=== PATIENT | male | born 1980 | race Caucasian/White ===

== ENCOUNTER 2016-12-03 22:40 | Observation (INO) | payer OTHER ==
[~2016-12-03] VITALS: Ht 182.9 cm; Wt 145.1 kg
--- NOTE | 2016-12-03 23:01 | ED GENERAL ADULT ---
See Addendum History of Present Illness General Chief Complaint: Psychiatric Related Complaint Stated Complaint: ETOH THOUGHTS OF HURTING SELF Source: patient, family Exam Limitations: no limitations Vital Signs & Intake/Output Vital Signs & Intake/Output Vital Signs Date Time Temp Pulse Resp B/P Pulse O2 O2 Flow FiO2 Ox Delivery Rate 12/04 1405 98.3 120 20 150/98 12/04 1404 98.3 120 20 150/98 98 Room Air 12/04 1115 98.1 126 18 158/108 12/04 1108 98.1 126 18 158/108 98 12/04 0827 96.6 128 18 126/63 12/04 0821 96.6 128 18 126/63 100 12/04 0555 96.9 108 20 180/90 12/04 0554 96.9 108 20 180/90 96 12/04 0409 103 18 157/88 12/04 0356 98.8 103 18 157/88 94 Room Air 12/04 0147 98.5 100 20 156/100 96 Room Air 12/04 0145 98.5 100 20 156/100 12/04 0015 95 Room Air 12/04 0012 98.1 105 20 160/107 12/03 2332 98.1 105 20 160/107 12/03 2309 98.1 105 20 160/107 95 Room Air ED Intake and Output 12/04 0000 12/03 1200 Intake Total 0 Output Total Balance 0 Intake, Oral 0 Patient 320 lb Weight Allergies Coded Allergies: No Known Allergies (12/03/16) Reconcile Medications Amlodipine Besylate 10 MG TABLET 10 MG PO DAILY BP (Reported) Triage Nurses Notes Reviewed? yes HPI: Patient presents requesting alcohol detox as well as increasing depression to the point that he is now getting suicidal thoughts. There is no plan. Patient states that when he was younger he smoked marijuana all the time and in the marijuana turned into cocaine in the cocaine turned into narcotics and the narcotics turned and alcohol. Patient is ever gone through alcohol detox before however he knows if he does not drink for a day gets very shaky and his heart began to pound. There is no history of withdrawal seizures. Patient denies any hallucinations. Patient was told years ago that he had high blood pressure but he only started medication last week for it. Patient states that he has finally reached the point where he knows he has a problem and notes he needs help to stop drinking. Patient also started Chantix last week. (IBAN CLEMONS,ADALID Johnson) Past History Travel History Traveled to [place] past 21 day No Medical History Any Pertinent Medical History? see below for history Cardiovascular: hypertension Surgical History Surgical History: non-contributory Psychosocial History Tobacco Use: Current Daily Use Daily Tobacco Use Amount/Type: => 5 Cigarettes daily ETOH Use: alcoholic Illicit Drug Use: PAST POLYSUBSTANCE USE Family History Hx Contributory? No (IBAN CLEMONS,ADALID Johnson) Review of Systems Review of Systems Constitutional: Reports: no symptoms. EENTM: Reports: no symptoms. Respiratory: Reports: no symptoms. Cardiovascular: Reports: no symptoms. GI: Reports: no symptoms. Genitourinary: Reports: no symptoms. Musculoskeletal: Reports: no symptoms. Skin: Reports: no symptoms. Neurological/Psychological: Reports: see HPI, depressed. Hematologic/Endocrine: Reports: no symptoms. Immunologic/Allergic: Reports: no symptoms. All Other Systems: Reviewed and Negative (IBAN CLEMONS,ADALID Johnson) Physical Exam Physical Exam General Appearance: well developed/nourished, alert, awake, intoxicated Head: atraumatic, normal appearance Eyes: Bilateral: PERRL, EOMI, other (SLUGGISH). Ears, Nose, Throat: normal pharynx, normal ENT inspection, hearing grossly normal Neck: normal inspection, supple, full range of motion Respiratory: normal breath sounds, chest non-tender, no respiratory distress, lungs clear Cardiovascular: normal peripheral pulses, tachycardia Gastrointestinal: normal bowel sounds, soft, non-tender Back: normal inspection Extremities: normal inspection, normal capillary refill, normal range of motion, no edema Neurologic/Psych: no motor/sensory deficits, awake, alert, oriented x 3, normal gait, normal mood/affect Skin: intact, normal color, warm/dry Core Measures ACS in differential dx? No CVA/TIA Diagnosis: No Severe Sepsis Present: No Septic Shock Present: No (IBAN CLEMONS,ADALID Johnson) Progress Differential Diagnoses I considered the following diagnoses in my evaluation of the patient: [Alcohol dependency, depression, suicidal ideations] Plan of Care: Orders Procedure Date/time Status Regular Diet 12/04 B Active Discharge Patient 12/04 1459 Active Pathway - chart 12/[address] in observation 12/04 26 Active Patient Data 01/12 0027 Active Code Status 12/04 26 Active Add-on Test (ER Only) 12/03 234 Active EKG 12/03 2346 Active TROPONIN LEVEL 12/03 2327 Complete Intake & Output 12/03 2300 Active Continuous Observation Monitor 12/03 2300 Active CIWA 12/03 2300 Active URINE DRUGS OF ABUSE 12/03 2300 Complete ETHANOL 12/03 2300 Complete COMPREHENSIVE METABOLIC PANEL 12/03 2300 Complete CBC WITHOUT DIFFERENTIAL 12/03 2300 Complete ED CRISIS PSYCH CONSULT 12/03 2300 Active Current Medications Sig/Endy Start time Last Medication Dose Stop Time Status Admin Lorazepam 2 MG ONCE ONE 12/04 1500 UNVr (Ativan) 12/04 1501 Lorazepam 2 MG Q2P PRN 12/04 0830 AC (Ativan) Laboratory Tests 12/03/162327: Anion Gap 21 H, Estimated GFR > 60, BUN/Creatinine Ratio 18.0, Glucose 97, Calcium 9.6, Total Bilirubin 0.8, AST 70 H, ALT 76 H, Alkaline Phosphatase 77, Troponin I < 0.01, Total Protein 8.2, Albumin 5.0, Globulin 3.2, Albumin/ Globulin Ratio 1.6, CBC w Diff NO MAN DIFF REQ, RBC 4.96, MCV 104.8 H, MCH 35.9 H, RDW 14.2, MPV 8.4, Gran % 41.0 L, Lymphocytes % 51.3 H, Monocytes % 5.6, Eosinophils % 0.9, Basophils % 1.2, Absolute Granulocytes 3.7, Absolute Lymphocytes 4.6 H, Absolute Monocytes 0.5, Absolute Eosinophils 0.1, Absolute Basophils 0.1, PUBS MCHC 34.2, Serum Alcohol 277.0 12/03/16 2315: Urine Opiates Screen < 100.00, Methadone Screen < 40, Barbiturate Screen < 60, Ur Phencyclidine Scrn < 6.00, Amphetamines Screen < 100, U Benzodiazepines Scrn < 85, Urine Cocaine Screen < 50, Urine Cannabis Screen 43.50 Initial ED EKG: NSR, no ST T wave changes Hand-Off Endorsed To: LUNA CLEMONS,PAULINE Mcdonald Endorsed Time: 0700 Pending: consult (IBAN CLEMONS,ADALID Johnson) Comments: 12/04/2016 2:01:40 PM patient signed out to me by Dr. 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 The patient's CIWA scores show minimal withdrawal but he is now hypertensive and tachycardic. There is a potential availability at [facility] for him. I have ordered Ativan and we'll reevaluate. If the patient's heart rate and blood pressure improve he will report [facility] for intake. (LUNA CLEMONS,PAULINE Mcdonald) Departure Departure Condition: Stable Clinical Impression Primary Impression: Alcohol dependency Secondary Impressions: Depressed Departure Forms: Customer Survey General Discharge Information (ADALID FERRERA MD) Departure Disposition: OTHER [facility] Additional Instructions: Report directly to [facility] for intake evaluation. Return if any concerns or sudden worsening. (PAULINE CARRASCO MD) Critical Care Note Critical Care Note Critical Care Time: non-applicable (ADALID FERRERA MD) ED Attending Observation Initial Observation Note: I have seen and personally examined JUNIOR BARON on 12/04/16 at 0028. I agree with the current emergency department documentation. The disposition (admission or discharge) is uncertain at this time, he needs a period of observation for the following reason(s): [Patient will require close monitoring of his vital signs and CIWA score. Patient may require medical admission and once he is medically cleared he require psychiatric consultation. Patient is at high risk of having a seizure.] The ED Nurse caring for this patient has been personally informed as to what the patient is being observed for. Observation Re-Evaluation: I have reevaluated JUNIOR BARON on 12/04/16 at 0242. The physical findings that support the continued need to observe this patient include [patient CIWA score continues to be 0. Patient is started to complain of little heartburn which was relieved with a GI cocktail. Patient is not tremulous. ]. His lung sounds are clear to auscultation his cardiac exam is regular rate and rhythm. (ADALID FERRERA MD) Observation Discharge: I have reevaluated JUNIOR BARON on 12/04/16 at 1500. The patient is: ([X]): Stable for discharge (): To be admitted to Nursing Floor (): To be placed in Observation on Nursing Floor ([X]): For transfer to other facility The patient was being observed for [signs of alcohol withdrawal] As a result of that observation, I have determined [the patient is experiencing acute alcohol withdrawal and will be evaluated at [facility]. Given the medications provided in the emergency department I feel he is stable for this plan]. (LUNA CLEMONS,PAULINE Mcdonald)
--- NOTE | 2016-12-03 23:05 | NUR ---
PT BROUGHT DIRECTLY TO RM 13. PT STATES HE WANTS ETOH DETOX. STATES HE DRINKS 750ML OF VODKA EVERY OTHER DAY. PT DENIES PHYSICAL COMPLAINTS, LAST DRINKL WAS 2 HOURS DENSITOMETRIST. PT STATES HE SMOKE WEED SOMETIMES. PT STATES HE HAS BEEN HAVING THOUGHT OF SI THAT HAVE BEEN GETTING WORSE. PT IS CALM AND COOPERATIVE. DENIES HX OF DT'S
--- NOTE | 2016-12-03 23:18 | NUR ---
URINE TRIO SENT TO LAB
--- NOTE | 2016-12-03 23:25 | NUR ---
AT BEDSIDE FOR EVAL
[2016-12-03 23:32] VITALS: BP 160/107
[2016-12-03 23:34] LABS: ABSOLUTE BASOPHIL COUNT 0.1 /CUMM (0.0-0.2); ABSOLUTE EOSINOPHIL COUNT 0.1 /CUMM (0.0-0.7); ABSOLUTE GRANULOCYTE CT 3.7 /CUMM (1.4-6.5); ABSOLUTE LYMPH COUNT 4.6 /CUMM (1.2-3.4); ABSOLUTE MONOCYTE COUNT 0.5 /CUMM (0.10-0.60); BASOPHIL % 1.2 % (0.0-2.0); EOSINOPHIL % 0.9 % (0-5); HEMATOCRIT 51.9 % (42-52); MEAN CORPUSCULAR HGB 35.9 PG (27.0-31.0); MEAN CORPUSCULAR HGB CONC 34.2 G/DL (33.0-37.0); MEAN CORPUSCULAR VOLUME 104.8 FL (80.0-94.0); MEAN PLATELET VOLUME 8.4 FL (7.4-10.4); PLATELET COUNT 335 /CUMM (130-400); RBC DISTRIBUTION WIDTH 14.2 % (11.5-14.5); RED BLOOD CELL CT 4.96 /CUMM (4.70-6.10)
[2016-12-04] VITALS (7 sets, daily range): BP systolic 126–180; BP diastolic 63–108
[2016-12-04] MEDS ORDERED: AMLODIPINE BESY10 M1 PO (00:16)
--- NOTE | 2016-12-04 00:17 | NUR ---
PT MEDICATED WITH 25MG LOPRESSOR PER EMAR
--- NOTE | 2016-12-04 00:27 | NUR ---
PT SCORED 0 FOR CIWA, PT CALM AND COOPERATIVE, PER PT "I WONT START WITHDRAWING UNTIL THE MORNING". PT RESTING ON STRETCHER, OFFERING NO COMPLAINTS AT THIS TIME, NO DISTRESS NOTED. SITTER AT BEDSIDE FOR SAFETY.
--- NOTE | 2016-12-04 01:44 | NUR ---
PT MEDICATED WITH GI COCKTAIL FOR ACID REFLUX PER EMAR, TOLERATED WELL.
--- NOTE | 2016-12-04 04:09 | NUR ---
PT SITTING UP WATCHING TV. SCORING 3 ON CIWA DUE TO HEADACHE. RESP UNLABORED. SITTER AT BEDSIDE.
--- NOTE | 2016-12-04 05:59 | NUR ---
PT CALM AND COOPERTIVE. PT REPORTS HEART RACING AND NAUSEA. PT BP IN 180'S AND HR 108. PT MEDICATED WITH 2 MG ATIVAN PER ORDER. WILL CONTINUE TO MONITOR.
--- NOTE | 2016-12-04 07:00 | NUR ---
PT SLEEPING AT THIS TIME NO DISTRESS NOTED SITTER REMAINS IN [place]
--- NOTE | 2016-12-04 08:34 | NUR ---
PT MEDICATED WITH ATIVAN FOR CIWA OF 10
--- NOTE | 2016-12-04 11:36 | NUR ---
PT MEDICATED WITH 1 OF ATIVAN PT ATE 100% OF HIS LUNCH TRAY
--- NOTE | 2016-12-04 13:53 | ED PSYCH CRISIS CONSULTATION ---
Crisis Consult Basic Assessment Date of Consult: 12/04/16 Responsible Person/Accompanied By: sully Ocasio other Insurance Authorization: Insurance #1: Insurance name: NAYELI STEEN Phone number: Policy number: [id number] Group number: Authorization number: ED Provider: Patient's ED Provider: ADALID FERRERA MD Primary Care Physician: Patient's PCP: COLLEEN STEVENSON MD PCP's Current Psychiatrist: none Chief Complaint: Psychiatric Related ? s I. Patient's Quote: "no, I'm not at all suicidal" Present Illness: Patient is a 36 year old male who is in a long-term stable relationship with a very supportive girlfriend with whom they have a 2 year old daughter, named Meghna. 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 Patient has had substance abuse problems since high school. He started with cannabis, and has used coccaine and oxycontin , but successfully stopped that on own. Now patient drinks 750 m.l. bottle of vodka per day. Patient is not able to work at present; but he may have a substantial financial settlement in the near future, perhaps nearly as much as $ 500,000; however much has been promised to others in anticipation of this anticipated settlement. When questioned about suicidality, patient stated that absolutely no thoughts like that; although he stated that he did have such thoughts when he was a senior in high school, as "I was the fat kid and teased a lot". Patient is fully alert and oriented, and cooperative. He verbalizes high motivation to Get treatment and to remain sober. Patient states that he does want to follow-up with counseling, as well, as his PCP had recommended. Called around for detox beds, with none available; but [facility] said that they hasdb 3 beds, and patient referred there, but will be held in E D. until heart rate is lower. Patient's Address: [address] [place] [address] Other Phone Number: Who Do You Live With? Family Family/Informants Interviewed: sully Orta other Allergies - Coded Allergies: No Known Allergies (01/11/17) Current Medications - Scheduled Medications Amlodipine Besylate 10 MG TABLET 10 MG PO DAILY BP #30 (Reported) Entered as Reported by MARIA WREN on 12/04/16 0016 Laboratory Results: Laboratory Tests 12/03/168: Anion Gap 21 H, Estimated GFR > 60, BUN/Creatinine Ratio 18.0, Glucose 97, Calcium 9.6, Total Bilirubin 0.8, AST 70 H, ALT 76 H, Alkaline Phosphatase 77, Troponin I < 0.01, Total Protein 8.2, Albumin 5.0, Globulin 3.2, Albumin/ Globulin Ratio 1.6, CBC w Diff NO MAN DIFF REQ, RBC 4.96, MCV 104.8 H, MCH 35.9 H, RDW 14.2, MPV 8.4, Gran % 41.0 L, Lymphocytes % 51.3 H, Monocytes % 5.6, Eosinophils % 0.9, Basophils % 1.2, Absolute Granulocytes 3.7, Absolute Lymphocytes 4.6 H, Absolute Monocytes 0.5, Absolute Eosinophils 0.1, Absolute Basophils 0.1, PUBS MCHC 34.2, Serum Alcohol 277.0 12/03/16 2315: Urine Opiates Screen < 100.00, Methadone Screen < 40, Barbiturate Screen < 60, Ur Phencyclidine Scrn < 6.00, Amphetamines Screen < 100, U Benzodiazepines Scrn < 85, Urine Cocaine Screen < 50, Urine Cannabis Screen 43.50 Past History Past Medical History Neurological: NONE EENT: NONE Cardiovascular: hypertension Respiratory: NONE Gastrointestinal: NONE Hepatic: NONE Renal: NONE Musculoskeletal: NONE Psychiatric: depression Endocrine: NONE Blood Disorders: NONE Cancer(s): NONE 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 of depression by PCP Substance Use/Abuse History Drug Use/Abuse Substances Used/Abused Yes Substance Used/Abused Alcohol First Use after injury alcohol became seriousthis was 1+ yrs ago Last Used yesterday How much used/taken 750 m.l. vodka daily How often daily For how long 1+ years of this amount Route of use p.o. Substance Abuse Treatment Substance Abuse Treatment Past Substance Abuse [place] No Comments: motivated Current Mental Status Mental Status Orientation: Person, Place, Situation Affect: WNL Speech: WNL Neuro-vegetative: WNL Appearance Appearance- Dress/Hygiene: adequate Behaviors Thought Process: WNL Thought Content: WNL Memory: WNL Insight: Fair SI/HI Risk Assessment Past Suicidal Ideation/Attempts Yes Current Suicidal Ideation/Att No Past Homicidal Ideation/Att: No Current Homicidal Ideation/Attempts No Degree of Intent: None Risk Factors: SA/MH hospitalized, substance abuse, male Lethality Ratin (mild) PTSD Checklist PTSD Done? pt unable to participate ED Management Sitter: Yes Restraints: No DSM5/PS Stressors/Medical Prob Diagnosis' (DSM 5, Stressors, Medical): Alcohol Use disorder, severe F10.20 Current GAF: 38 Comments: patient motivated for detox and being clean Departure Disposition Psych Medical Clearance Date: 12/04/16 Medically Cleared at: 1400 Time Started: 1401 Time Ended: 1435 Psychiatrist Consulted: German Scott MD Time Disposition Established: 1435 Plan for Disposition - Modality: Inpatient Detoxification Facility: [facility] Follow-up Appt Date: 12/04/16 Follow-Up Appt Time: 1600 Rationale for Disposition: Pt has Husky, and needs detox facility Referrals GRAHAM CLEMONS,COLLEEN (PCP/Family)
--- NOTE | 2016-12-04 14:06 | NUR ---
PT MEDICATED WITH 2 MG ATIVAN PO
== END 2016-12-04 15:30 ==
LOC: ERH 22:40 → ERHI 12-04 00:27
PROVIDERS: ADMIT Emergency Medicine
DX: F10.20 Alcohol dependence, uncomplicated (principal); F32.9 Major depressive disorder, single episode, unspecified; I10 Essential (primary) hypertension
CPT/HCPCS: 6090; 80307; 93005; 93010; G0378; G0463; G0480

== ENCOUNTER 2017-02-11 22:05 | Emergency (ER) | payer OTHER ==
[~2017-02-11 22:05] MED LIST: AMLODIPINE BESY10 M1 PO
--- NOTE | 2017-02-11 22:32 | ED HAND/WRIST INJURY COMPLAINT ---
History of Present Illness General Chief Complaint: Laceration Procedure Stated Complaint: LEFT HAND LAC ?ETOH Source: patient Exam Limitations: no limitations Vital Signs & Intake/Output Vital Signs & Intake/Output Vital Signs Date Time Temp Pulse Resp B/P Pulse O2 O2 Flow FiO2 Ox Delivery Rate 02/11 2318 97.5 78 18 153/82 97 Room Air 02/115 97.0 88 20 164/90 Allergies Coded Allergies: No Known Allergies (12/03/16) Reconcile Medications Amlodipine Besylate 10 MG TABLET 10 MG PO DAILY BP (Reported) Amoxicillin/Potassium Clav (Augmentin 875-125 Tablet) 875 MG-125 MG TABLET 1 TAB PO BID open tuft fracture Triage Note: PER PT "GOT DRUNK AND ?PUNCHED A DOOR. PT UNSURE HOW INCIDENT OCCURRED. GIRLFRIEND SUPPLYING ANSWERS, UNSURE OF LAST TETANUS Triage Nurses Notes Reviewed? yes Occurred: just prior to arrival Duration: minute(s):, constant Timing: single episode today Injury Environment: home Severity: moderate, severe Pain/Injury Location: Left: 3rd finger. Method of Injury: direct blow No Modifying Factors: none HPI: 36-year-old male comes into emergency room for further evaluation of laceration and pain to his left third finger. Patient reports that he threw it into a door. Patient admits to drinking tonight. Patient drinks alcohol on a daily basis. Patient is now here for detox. Patient is accompanied by significant other who drove him here. He denies any injury or pain anywhere else. Last tetanus shot unknown. Patient is clinically sober and alert and oriented and able to provide adequate history. (SHANNON ALY) Past History Travel History Traveled to [place] past 21 day No Medical History Any Pertinent Medical History? 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 No (SHANNON ALY) Review of Systems Review of Systems Constitutional: Reports: no symptoms. EENTM: Reports: no symptoms. Respiratory: Reports: no symptoms. Cardiovascular: Reports: no symptoms. GI: Reports: no symptoms. Genitourinary: Reports: no symptoms. Musculoskeletal: Reports: see HPI. Skin: Reports: no symptoms. Neurological/Psychological: Reports: no symptoms. Hematologic/Endocrine: Reports: no symptoms. Immunologic/Allergic: Reports: no symptoms. All Other Systems: Reviewed and Negative (SHANNON ALY) Physical Exam Physical Exam General Appearance: well developed/nourished Head: atraumatic Eyes: Bilateral: normal appearance. Ears, Nose, Throat: normal ENT inspection, hearing grossly normal Neck: normal inspection Cardiovascular/Respiratory: no respiratory distress Back: normal inspection Hand Left: 3rd finger Hand Right: normal inspection Neurologic/Tendon: normal sensation, normal motor functions, responds to pain, patient cannot extend distal phalanx Skin: intact, normal color, warm/dry Lymphatic: no anterior cervical amisha (SHANNON ALY) Progress Differential Diagnosis: dislocation, fracture, gout, paronychia, septic arthritis, sprain Plan of Care: Current Medications Sig/Endy Start time Last Medication Dose Stop Time Status Admin Amoxicillin/ 1,000 MG ONCE ONE 02/11 2345 UNVr Clavulanate Potassium 02/11 2346 (Augmentin) Tetanus/Diphtheria 0.5 ML ONCE ONE 02/11 2345 UNVr Toxoids Adsorbed 02/11 2346 (Decavac) Diagnostic Imaging: Viewed by Me: Radiology Read. Discussed w/RAD: Radiology Read. Radiology Impression: SERVICE DATE: 02/11/17 EXAM TYPE: RAD - XRY-FINGERS , LEFT EXAMINATION: XR FINGER, LEFT CLINICAL INFORMATION: Pain. Symptoms middle finger. Laceration COMPARISON: None TECHNIQUE: Three views of the left third finger. FINDINGS: Partially opaque dressing obscures some of the anatomy. There is a displaced fracture fragment associated with the ulnar margin of the third distal phalanx. This measures approximately 4 mm. There may be a rotational component. There is soft tissue swelling. IMPRESSION: There is a displaced intra -articular fracture involving the ulnar base of the third distal phalanx DICTATED BY: MIKAEL FONG MD DATE/TIME DICTATED:02/11/172254 SHIFT MECHANIC:TAJ DATE/TIME TRANSCRIBED:02/11/172254 (SHANNON ALY) Departure Departure Disposition: HOME OR SELF CARE Condition: Stable Clinical Impression Primary Impression: Open fracture of tuft of distal phalanx of finger Secondary Impressions: Mallet finger Referrals: GRAHAM CLEMONS,COLLEEN (PCP/Family) LAILA CLEMONS,RUBÉN Additional Instructions: Take Augmentin as prescribed. Follow-up with plastic surgeon provided. Return if any other concerns worsening symptoms. Watch for signs of infection such as redness swelling discharge fever chills. Please go over all results of today's visit with your primary care doctor. Contact your primary care doctor to let them know you were here in the emergency room. There may be nonspecific findings which may not be related to your visit today here in the emergency room but may require further evaluation and chronic monitoring by your primary care doctor. If you had a laceration today the chance of foreign body always remains. You should follow-up with your primary care doctor for recheck in 3-5 days for a wound check. If you had an x-ray done there is a chance that a fracture could have been missed on initial read and you should follow-up with your primary care doctor for repeat x-rays if symptoms persist. If your blood pressure was elevated here in the emergency room please have rechecked by her primary care doctor within the next 48 hours by your primary care doctor. If you were prescribed a narcotic here in the emergency room or any type of controlled substances you're not allowed to drive while taking this medication or operate any type of heavy machinery. Narcotics can make you feel lightheaded dizziness nausea and can cause constipation. You may need to fruit picker a stool softener. Thank you for choosing [facility] emergency room. Please return to the emergency room immediately if you have any other concerns worsening of symptoms. Departure Forms: Customer Survey General Discharge Information Prescriptions: Current Visit Scripts Amoxicillin/Potassium Clav (Augmentin 875-125 Tablet) 1 TAB PO BID #20 TAB (SHANNON ALY) PA/TWISTER HAND Co-Sign Statement Statement: ED Attending supervision documentation- [] I saw and evaluated the patient. I have also reviewed all the pertinent lab results and diagnostic results. I agree with the findings and the plan of care as documented in the PA's/TWISTER HAND's documentation. [X] I have reviewed the ED Record and agree with the PA's/TWISTER HAND's documentation. [] Additions or exceptions (if any) to the PAs/TWISTER HAND's note and plan are summarized below: [] (IBAN CLEMONS,ADALID Johnson) Procedures Laceration/Wound Repair Progress: Beta dime prep her left third finger, digital block, 3 mL 1% lidocaine, irrigated with copious amounts of saline, 5-0 nylon, 5 sutures, patient tolerated procedure well, sterile technique, placed in a finger splint with slight hyper extension Performed by PA student with my supervision (WILLIAM ENGLISH,SHANNON)
--- NOTE | 2017-02-11 23:00 | RADIOLOGY REPORT ---
EXAMINATION: XR FINGER, LEFT CLINICAL INFORMATION: Pain. Symptoms middle finger. Laceration COMPARISON: None TECHNIQUE: Three views of the left third finger. FINDINGS: Partially opaque dressing obscures some of the anatomy. There is a displaced fracture fragment associated with the ulnar margin of the third distal phalanx. This measures approximately 4 mm. There may be a rotational component. There is soft tissue swelling. IMPRESSION: There is a displaced intra-articular fracture involving the ulnar base of the third distal phalanx
[2017-02-11 23:18] VITALS: BP 153/82
[2017-02-11] MEDS ORDERED: AUGMENTIN 875-1 EACH PO (23:47)
== END 2017-02-12 00:10 ==
LOC: ERH 22:05
DX: S61.213A Laceration without foreign body of left middle finger without damage to nail, initial encounter (principal); W23.0XXA Caught, crushed, jammed, or pinched between moving objects, initial encounter; Y93.9 Activity, unspecified; Y92.9 Unspecified place or not applicable
CPT/HCPCS: 73140-LT; 90471; 90714; J3490

== ENCOUNTER 2017-03-08 22:06 | Inpatient (IN) | payer OTHER ==
[~2017-03-08] VITALS: Ht 182.9 cm; Wt 146.7 kg
[~2017-03-08 22:06] MED LIST changes: +AUGMENTIN 875-1 EACH PO
--- NOTE | 2017-03-08 22:37 | ED PSYCHIATRIC COMPLAINT ---
History of Present Illness General Chief Complaint: Psychiatric Related Complaint Stated Complaint: +SI, +ETOH Source: patient Exam Limitations: no limitations Vital Signs & Intake/Output Vital Signs & Intake/Output Vital Signs Date Time Temp Pulse Resp B/P Pulse O2 O2 Flow FiO2 Ox Delivery Rate 03/09 1857 97.2 76 12 150/100 98 Room Air 03/09 1647 82 174/110 03/09 1647 82 174/110 03/09 1621 97.7 82 16 174/110 99 Room Air 03/09 1030 97.1 78 18 150/89 97 Room Air 03/09 0758 97.0 82 16 136/79 03/09 0731 97.1 77 16 126/83 94 Room Air 03/09 0624 96.8 86 18 143/87 96 03/09 0115 97.0 86 18 138/74 97 03/08 2236 97.8 93 20 141/91 98 Room Air ED Intake and Output 03/09 0000 03/08 1200 Intake Total Output Total Balance Patient 300 lb Weight Allergies Coded Allergies: No Known Allergies (12/03/16) Triage Nurses Notes Reviewed? yes Onset: Abrupt Duration: week(s): Timing: recent history Severity: moderate, severe HPI: 36-year-old male comes into emergency room for further evaluation of depression and alcohol and suicidal thoughts. Patient reports that he's been feeling depressed for quite some time. Patient has been drinking heavy amounts of alcohol since November of this year. Patient reports she's had fleeting thoughts of wanting to kill himself but never has had a plan and reports that he does not believe in suicide. He admits to drinking heavy amounts of alcohol but denies any other drug use. Patient has been having relationship difficulties with his girlfriend. Patient has a daughter. (SHANNON ALY) Reconcile Medications Amlodipine Besylate 10 MG TABLET 10 MG PO DAILY BP (Reported) Folic Acid 1 MG TABLET 1 TAB PO DAILY SUPPLEMENT (Reported) Losartan Potassium 50 MG TABLET 1 TAB PO DAILY HEART (Reported) Multivitamin (Multi-Day Vitamins) 1 EACH TABLET 1 TAB PO DAILY SUPPLEMENT ( Reported) Thiamine HCl (B-1) 100 MG TABLET 1 TAB PO DAILY SUPPLEMENT (Reported) (KASIE CLEMONS,DUNIA) Past History Travel History Traveled to [place] past 21 day No Medical History Any Pertinent Medical History? 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 No (SHANNON ALY) Review of Systems Review of Systems Constitutional: Reports: no symptoms. EENTM: Reports: no symptoms. Respiratory: Reports: no symptoms. Cardiovascular: Reports: no symptoms. GI: Reports: no symptoms. Genitourinary: Reports: no symptoms. Musculoskeletal: Reports: no symptoms. Skin: Reports: no symptoms. Neurological/Psychological: Reports: see HPI. Hematologic/Endocrine: Reports: no symptoms. Immunologic/Allergic: Reports: no symptoms. All Other Systems: Reviewed and Negative (SHANNON ALY) Physical Exam Physical Exam General Appearance: well developed/nourished, mild distress Head: atraumatic Eyes: Bilateral: normal appearance. Ears, Nose, Throat: normal ENT inspection, hearing grossly normal Neck: normal inspection Respiratory: normal breath sounds, no respiratory distress Cardiovascular: regular rate/rhythm Extremities: normal range of motion Neurological/Psychiatric: awake, agitated, alert, normal mood/affect, anxious Appearance/Memory/Insight: appropriate appearance Behavoir/Eye Contact/Speech: cooperative Thoughts/Hallucinations: no apparent hallucination Skin: intact, normal color, warm/dry SAD PERSONS SAD PERSONS Response Value Male Sex? yes 1 Depression/Hopelessness? yes 2 Excessive Ethanol/Drug Use? yes 1 Single//? yes 1 Social Support? has support 0 Total 5 SAD PERSONS Done? yes (SHANNON ALY) Progress Differential Diagnosis: dementia, drug intoxication, drug overdose, drug withdrawal, electrolyte abnormality, encephalitis, hypoglycemia, hypothyroidism, IC hem/mass/tumor, meningitis, depression, anxiety, bipolar Plan of Care: Orders Procedure Date/time Status Regular Diet 03/09 B Active Admit to inpatient psych 03/09 1901 Active Continuous Observation Monitor 03/08 2224 Active URINE DRUG SCREEN FOR ER ONLY 03/08 2224 Complete ETHANOL 03/08 2224 Complete COMPREHENSIVE METABOLIC PANEL 03/08 2224 Complete CBC WITHOUT DIFFERENTIAL 03/08 2224 Complete ED CRISIS PSYCH CONSULT 04/16 2224 Active Laboratory Tests 03/09/17 0734: Urine Opiates Screen < 100.00, Methadone Screen < 40, Barbiturate Screen < 60, Ur Phencyclidine Scrn < 6.00, Amphetamines Screen < 100, U Benzodiazepines Scrn > 800 H, Urine Cocaine Screen < 50, Urine Cannabis Screen 67.00 H 03/09/17 0021: Anion Gap 13, Estimated GFR > 60, BUN/Creatinine Ratio 18.0, Glucose 97, Calcium 9.1, Total Bilirubin 0.3, AST 50, ALT 60, Alkaline Phosphatase 45, Total Protein 6.2 L, Albumin 3.6, Globulin 2.6, Albumin/Globulin Ratio 1.4, CBC w Diff NO MAN DIFF REQ, RBC 3.89 L, MCV 102.6 H, MCH 34.4 H, RDW 12.8, MPV 8.8, Gran % 50.8 , Lymphocytes % 39.1, Monocytes % 7.5, Eosinophils % 1.9, Basophils % 0.7, Absolute Granulocytes 3.6, Absolute Lymphocytes 2.8, Absolute Monocytes 0.5, Absolute Eosinophils 0.1, Absolute Basophils 0, PUBS MCHC 33.6, Serum Alcohol 121.0 03/09/2017 7:17 AM PATIENT SIGNED OUT TO ME BY DR SELBY. PENDING CRISIS EVALUATION. (DUNIA EFRRO MD) Hand-Off Endorsed To: JAKE SELBY MD Endorsed Time: 002 Pending: consult (crisis) (SHANNON ALY) Hand-Off Endorsed To: DUNIA FERRO MD Endorsed Time: 07 Pending: consult (JAKE SELBY MD) Departure Departure Disposition: STILL A PATIENT Condition: Stable Referrals: COLLEEN STEVENSON MD (PCP/Family) Departure Forms: Customer Survey General Discharge Information (SHANNON ALY) Departure Time of Disposition: 1900 Clinical Impression Primary Impression: Depressed Secondary Impressions: Bipolar disorder, unspecified, Suicidal ideation Psych Admission Note Psychiatric Admission: I have seen and evaluated JUNIOR BARON. I have also reviewed all the pertinent lab results and diagnostic results. JUNIOR BARON will be admitted to our inpatient Psychiatric unit for treatment and care. (DUNIA FERRO MD)
--- NOTE | 2017-03-08 22:43 | NUR ---
PT BROUGHT INTO ED BY POLICE AND SISTER. PT'S SISTER DROVE PT TO ED BY PRIVATE VEHICLE BUT PT WOULD NOT GET OOUT OF VEHICLE IN PARKING LOT. PD ARRIVED AND PLACED PT ON PEER. PT'S SISTER, DODIE, CAN BE REACHED VIA TELEPHONE . PT COMPLAINING OF BEING "HORRIBLY DEPRESSED" WITH SI. PT HAS HISTORY OF DEPRESSION SINCE TEENAGER AND HAD AN INCREASE IN DEPRESSION RECENTLY. PT COULD NOT SPECIFY WHEN INCREASE IN SYMPTOMS STARTED. PT HAD PLAN OF SHOOTING HIMSELF BUT DOES NOT HAVE ACCESS TO FIREARMS. PT INTOXICATED WITH SLURRED SPEECH AND ADMITTED TO DRINKING VODKA. DENIED ILLICIT DRUG USE. AMADOR THOMAS AT BEDSIDE FOR EVAL.
--- NOTE | 2017-03-08 22:48 | NUR ---
PT CHANGED INTO PAPER SCRUBS. SECURITY WANDED PT. SITTERS PRESENT. 1 BELONGINGS BAG TO CLOSET. NO VALUABLES BAG
--- NOTE | 2017-03-08 23:38 | NUR ---
PT REPORTS FEELING ANXIOUS. PT WANTS TO SMOKE. NICODERM PATCH APPLIED
--- NOTE | 2017-03-09 00:20 | NUR ---
BLOOD DRAWN AND SENT TO LAB. LAV,SST,BLUE
[2017-03-09 00:48] LABS: ABSOLUTE BASOPHIL COUNT 0 /CUMM (0.0-0.2); ABSOLUTE EOSINOPHIL COUNT 0.1 /CUMM (0.0-0.7); ABSOLUTE GRANULOCYTE CT 3.6 /CUMM (1.4-6.5); ABSOLUTE LYMPH COUNT 2.8 /CUMM (1.2-3.4); ABSOLUTE MONOCYTE COUNT 0.5 /CUMM (0.10-0.60); BASOPHIL % 0.7 % (0.0-2.0); EOSINOPHIL % 1.9 % (0-5); GRANULOCYTE % 50.8 % (42.2-75.2); HEMATOCRIT 39.9 % (42-52); MEAN CORPUSCULAR HGB 34.4 PG (27.0-31.0); MEAN CORPUSCULAR HGB CONC 33.6 G/DL (33.0-37.0); MEAN CORPUSCULAR VOLUME 102.6 FL (80.0-94.0); MEAN PLATELET VOLUME 8.8 FL (7.4-10.4); PLATELET COUNT 291 /CUMM (130-400); RBC DISTRIBUTION WIDTH 12.8 % (11.5-14.5); RED BLOOD CELL CT 3.89 /CUMM (4.70-6.10); WHITE BLOOD CELL COUNT 7.1 /CUMM (4.8-10.8)
--- NOTE | 2017-03-09 01:01 | NUR ---
PATIENT SHOWN POLICE PAPER REGARDING RATIONALE FOR PATIENT STAY IN ER D/T +SI COMMENTS, SHOWN PAPER BY HILARY LEWIS. PATIENT NOTED TO BE RESTING COMFORTABLY S/P BEING SHOWN PD PAPER. SLEEPING INTERMITTENTLY. SITTER REMAINS W/ PATIENT.
--- NOTE | 2017-03-09 02:51 | NUR ---
PATIENT CONTINUES TO SLEEP AT THIS TIME W/ REGULAR RESPIRATIONS NOTED. SITTER REMAINS W/ PATIENT. PATIENT SAFETY MONITOR SHEET BEING CONTINUED BY SITTER. PATIENT NOTED TO BE TURNING AND REPOSITIONING SELF W/O DIFFICULTY.
--- NOTE | 2017-03-09 04:58 | NUR ---
PATIENT CONTINUES TO SLEEP AT THIS TIME W/ REGULAR RESPIRATIONS NOTED. SITTER REMAINS AT BEDSIDE. PATIENT NOTED TO BE TURNING/ REPOSITIONING SELF W/O DIFFICULTY OR ASSIST. PATIENT SAFETY MONITOR SHEET CONTINUED BY SIDDHARTH.
--- NOTE | 2017-03-09 06:30 | NUR ---
AWOKE PATIENT FROM SLEEP TO OBTAIN VS. PATIENT DENIES ANY COMPLAINTS. COOPERATIVE W/ STAFF AT THIS TIME. SITTER REMAINS W/ PATIENT. POC: INITIAL CRISIS EVAL THIS AM.
--- NOTE | 2017-03-09 07:28 | NUR ---
ASSUMED CARE, PT AWAKE ALERT CALM AND COPRATIVE AT THIS TIME, DENIES PAIN, PT REQUEST NICOTINE PATCH, MD AWARE AND 21 MG PATCH PLACED ON R UPPER ARM. PT NOTED WITH R EYE BRUISING, WHEN THIS NURSE ASKED HIM WHAT HAPPENED , "STATES THAT HE IS NOT SURE BUT DENIES PAIN". PT AWARE THAT HE EILEEN BE EVALUATED BY CRISIS THIS AM AND THAT HE NEEDS TO PROVIDE A URINE SAMPLE
--- NOTE | 2017-03-09 07:41 | NUR ---
URINE TRIO SENT AT 0740.
[2017-03-09 07:58] VITALS: BP 136/79
--- NOTE | 2017-03-09 10:11 | NUR ---
PT REMAINS CALM AND COPERATIVE AT THIS TIME. WAITING ON CRISIS EVALUATION. PTS SISTER CALLED AND STATED THAT AFTER HE IS EVALUATED THAT SHE WOULD LIKE TO BE CALLED. STATES THAT SHE HAS ADDITIONAL INFORMATION THAT MAY HELP WITH PTS PLAN OF CARE
[2017-03-09] MEDS ORDERED: LOSARTAN POTASS50 M1 PO (10:33)
[2017-03-09] MEDS ORDERED: FOLIC ACID1 M1 PO (10:33)
[2017-03-09] MEDS ORDERED: B-1100 MG PO (10:34)
[2017-03-09] MEDS ORDERED: MULTI-DAY VITA1 EACH PO (10:34)
--- NOTE | 2017-03-09 12:00 | NUR ---
PT REMAINS CALM AND COPERATIVE AT THIS TIME. SITTER REMAINS
--- NOTE | 2017-03-09 15:04 | NUR ---
PT INFORMED TO FOLLOW UP WITH PRIMARY AND RE-CHECK BLOOD PRESSURE
--- NOTE | 2017-03-09 16:25 | NUR ---
BLOOD PRESSURE ELEVATED. DR FERRO NOTIFIED AND SCHEDULED BLOOD PRESSURE MEDS ORDERED
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
[2017-03-09 19:14] VITALS: BP 150/100
--- NOTE | 2017-03-09 19:19 | NUR ---
SITTING UP ON BED WITH FAMILY AT BEDSIDE. AWAKE/ALERT WITH EASY WOB. CALM/COOPERATIVE. INFORMED WAITING REGARDING ADMISSION PROCESS PROIDED. MEDICATED WITH 10MG NORVASC ORDERED FOR MANUAL BP 150/100.
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
--- NOTE | 2017-03-09 20:15 | NUR ---
REPEAT MANUAL BP 168/104. MD AWARE. AWAITING ORDERS.
--- NOTE | 2017-03-09 20:56 | NUR ---
repeat manul bp 146/88
--- NOTE | 2017-03-09 21:00 | NUR ---
REPORT TO CPS RN. PT CAN GO DOWN AFTER 2114.
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
[2017-03-10] VITALS (9 sets, daily range): BP systolic 142–160; BP diastolic 90–102
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
--- NOTE | 2017-03-10 11:44 | NUR ---
PT VISIBLE IN THE MILIEU TODAY. HE CAME TO PLANNING MEETING AND MADE THE GOAL TO FIND COPING SKILLS. PT HAS BEEN OPEN TO ATTENDING GROUPS, AND APPEARS TO HAVE GOOD INSIGHT. PT SEEMS TO BE ADJUSTING WELL TO THE MILIEU, AND HAS BEEN COOPERATIVE WITH STAFF DIRECTION. HE DENIES THOUGHTS OF HURTING HIMSELF WHEN ASKED.
--- NOTE | 2017-03-10 13:04 | History & Physical ---
General Information and HPI MD Statement: I have seen and personally examined JUNIOR BARON and documented this H&P. The patient is a 36 year old M who presented with a patient stated chief complaint of worsening depression and suicidal ideation. Source of Information: patient Exam Limitations: no limitations History of Present Illness: 36-year-old male with past medical history significant for hypertension, depression who is admitted to Inpatient Psychiatry with worsening depression as well as suicidal ideation. Patient claims that he has significant history of depression as well as anger management. Whenever he gets angry he just goes out and starts punching the wall. He is also drinking large amounts of alcohol. He also uses some recreational drugs. He smokes a pack of cigarettes a day. He is just frustrated with his life. He has a history of herniated disc about 2 years ago due to an accident and since then he lost his job. He has developed aches and pains all over his body. Now his bilateral hips, bilateral knees as well as his right shoulder are hurting. Patient is also obese. He has a 2-year-old child and he has to run around which makes him even further depressed. He does not have a job currently. He just wanted to end his life when he came in but currently upon my interview with him he was denying any suicidal ideation. He just mentions that he's feeling awfully depressed. He denies any urinary problems. He denies any fevers, cough or shortness of breath. Allergies/Medications Allergies: Coded Allergies: No Known Allergies (12/03/16) Home Med list Amlodipine Besylate 10 MG TABLET 10 MG PO DAILY BP (Reported) Folic Acid 1 MG TABLET 1 TAB PO DAILY SUPPLEMENT (Reported) Losartan Potassium 50 MG TABLET 1 TAB PO DAILY HEART (Reported) Multivitamin (Multi-Day Vitamins) 1 EACH TABLET 1 TAB PO DAILY SUPPLEMENT ( Reported) Thiamine HCl (B-1) 100 MG TABLET 1 TAB PO DAILY SUPPLEMENT (Reported) Past History Travel History Traveled to [place] past 21 day No Medical History Neurological: NONE EENT: NONE Cardiovascular: hypertension Respiratory: NONE Gastrointestinal: NONE Hepatic: NONE Renal: NONE Musculoskeletal: NONE Psychiatric: alcohol dependence, depression Endocrine: NONE Blood Disorders: NONE Cancer(s): NONE LEAF STICKER/Reproductive: NONE History of MRSA: No History of VRE: No History of CDIFF: No Isolation History: Standard Influenza Vaccine: 10/03/11 Tetanus Vaccine: 02/12/17 Surgical History Surgical History: non-contributory Past Family/Social History Family History Relations & Conditions if any MOTHER Relation not specified for: Coronary artery disease in mother Employment History Employment Unemployed Profession/Employer Last employed 02/2014 Review of Systems Review of Systems Constitutional: Reports: see HPI. EENTM: Reports: see HPI. Cardiovascular: Reports: see HPI. Respiratory: Reports: see HPI. GI: Reports: see HPI. Genitourinary: Reports: see HPI. Musculoskeletal: Reports: see HPI. Neurological/Psychological: Reports: see HPI. Exam & Diagnostic Data Last 24 Hrs of Vital Signs/I&O Vital Signs Date Time Temp Pulse Resp B/P Pulse O2 O2 Flow FiO2 Ox Delivery Rate 03/10 1233 77 144/90 03/10 1221 77 144/90 03/10 0935 98.1 72 12 142/98 03/10 0935 98.1 72 12 142/98 03/10 0808 72 142/98 03/10 0748 98.1 72 142/98 03/10 0019 98.6 74 160/102 03/10 0019 98.6 74 160/102 03/09 2056 146/88 03/09 202 76 168/104 03/09 2019 76 168/104 03/09 1919 76 150/100 03/09 1914 98.5 76 12 150/100 03/09 1857 97.2 76 12 150/100 98 Room Air 03/09 1647 82 174/110 03/09 1647 82 174/110 03/09 1621 97.7 82 16 174/110 99 Room Air Intake & Output 03/10 1600 03/10 0800 03/10 0000 Intake Total Output Total Balance Patient 323 lb 300 lb Weight Physical Exam General Appearance Alert, Oriented X3, Cooperative, No Acute Distress HEENT PERRLA Neck Supple Cardiovascular Regular Rate, Normal S1, Normal S2, No Murmurs Lungs Clear to Auscultation Abdomen Normal Bowel Sounds, Soft, No Tenderness, obese Neurological Cranial Nerves II through XII: intact Extremities No Edema Last 24 Hrs of Labs/[place]: Laboratory Tests 03/09 03/09 0734 0021 Chemistry Sodium (137 - 145 mmol/L) 146 H Potassium (3.5 - 5.1 mmol/L) 3.8 Chloride (98 - 107 mmol/L) 107 Carbon Dioxide (22 - 30 mmol/L) 26 Anion Gap (5 - 16) 13 BUN (9 - 20 mg/dL) 18 Creatinine (0.7 - 1.2 mg/dL) 1.0 Estimated GFR (>60 ml/min) > 60 BUN/Creatinine Ratio (7 - 25 %) 18.0 Glucose (65 - 99 mg/dL) 97 Calcium (8.4 - 10.2 mg/dL) 9.1 Total Bilirubin (0.2 - 1.3 mg/dL) 0.3 AST (17 - 59 U/L) 50 ALT (21 - 72 U/L) 60 Alkaline Phosphatase (< 127 U/L) 45 Total Protein (6.3 - 8.2 g/dL) 6.2 L Albumin (3.5 - 5.0 g/dL) 3.6 Globulin (1.9 - 4.2 gm/dL) 2.6 Albumin/Globulin Ratio (1.1 - 2.2 %) 1.4 Vitamin B12 (239 - 931 pg/mL) Pending Folate (2.76 - 20.0 ng/mL) Pending TSH (0.270 - 4.200 uIU/mL) Pending Free T4 (0.79 - 2.35 ng/dL) Pending Thyroxine (T4) (4.5 - 10.9 ug/dL) Pending Hematology CBC w Diff NO MAN DIFF REQ WBC (4.8 - 10.8 /CUMM) 7.1 RBC (4.70 - 6.10 /CUMM) 3.89 L Hgb (14.0 - 18.0 G/DL) 13.4 L Hct (42 - 52 %) 39.9 L MCV (80.0 - 94.0 FL) 102.6 H MCH (27.0 - 31.0 PG) 34.4 H RDW (11.5 - 14.5 %) 12.8 Plt Count (130 - 400 /CUMM) 291 MPV (7.4 - 10.4 FL) 8.8 Gran % (42.2 - 75.2 %) 50.8 Lymphocytes % (20.5 - 51.1 %) 39.1 Monocytes % (1.7 - 9.3 %) 7.5 Eosinophils % (0 - 5 %) 1.9 Basophils % (0.0 - 2.0 %) 0.7 Absolute Granulocytes (1.4 - 6.5 /CUMM) 3.6 Absolute Lymphocytes (1.2 - 3.4 /CUMM) 2.8 Absolute Monocytes (0.10 - 0.60 /CUMM) 0.5 Absolute Eosinophils (0.0 - 0.7 /CUMM) 0.1 Absolute Basophils (0.0 - 0.2 /CUMM) 0 PUBS MCHC (33.0 - 37.0 G/DL) 33.6 Toxicology Urine Opiates Screen (>2000 NG/ML) < 100.00 Methadone Screen (>300 NG/ML) < 40 Barbiturate Screen (>200 NG/ML) < 60 Ur Phencyclidine Scrn (>25 NG/ML) < 6.00 Amphetamines Screen (>1000 NG/ML) < 100 U Benzodiazepines Scrn (>200 NG/ML) > 800 H Urine Cocaine Screen (>300 NG/ML) < 50 Urine Cannabis Screen (>50 NG/ML) 67.00 H Serum Alcohol (<10 MG/DL) 121.0 Assessment/Plan Assessment: 36-year-old male with history significant for hypertension, chronic pains, depression who is admitted to Inpatient Psychiatry with worsening depression, alcohol intoxication as well as suicidal ideation. Patient has been started on amlodipine and losartan which he takes for his hypertension. He is also started on Ativan, multivitamin and folate for his history of alcohol intoxication and use. For pain management he is getting Tylenol and Neurontin when necessary. I would avoid narcotics. Psych management up to psychiatry. He has a primary care doctor and should follow-up with his primary care doctor for his chronic medical issues as well as weight management. As Ranked By This Provider Problem List: 1. Alcohol dependency 2. Depressed 3. Suicidal ideation 4. HTN (hypertension) Miscellaneous Miscellaneous Documentation Attending Case Discussed With: Nellie Connell M.D. Primary Care Physician: COLLEEN STEVENSON MD Patient sees these Specialists none Level of Patient Care: [facility]
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
--- NOTE | 2017-03-10 16:32 | SOCIAL WORKER TX PLAN PSYCH ---
Treatment Plan - Please Document: - Evidence that there is ongoing collaboration between - the patient and the interdisciplinary team, - including the patient's active participation and - responsibility for engaging in the treatment regimen, - and that the treatment plan is individualized and - relevant to the patient's conditions. - Treatment plan should reflect documentation indicating - that all active therapeutic efforts are included. Strengths/Capabilities: Motivated and has good support Physical Limitations (Interventions): Sustained injury at work and on disability Patient Identified Trmt Goals: "I need help with my mental health and addiction" Discharge Plan: [facility] dual IOP Problem/Goals #1 Problem #1: depression Goal (Short Term): Patient will engage in 75% of groups on the unit Goal (Emergency Worker): patient will identify 2 coping skills to manage symptoms Interventions: patient will be offered medication management with the psychiatrist, groups on symptom management, coping skills, relaxation, focus group, goals group. Mortgage Branch Manager will discuss issues related to home environment and relationships, hold family meeting and assist with aftercare planning. Problem/Goals #2 Problem #2: alcohol dependence/abuse Goal (Short Term): patient will identify 2 triggers to drinking Goal (Emergency Worker): patient will develop a relapse prevention plan Interventions: patient will be offered groups on the unit such as AA, relapse prevention, coping skills. Mortgage Branch Manager will explore the consequences that drinking has had on relationships and his current mental status. DSM5/PS Stressors/Medical Prob Diagnosis' (DSM 5, Stressors, Medical): F31.9 Unspecified Bipolar and Related Disorder F10.20 Alcohol Use Disorder, Severe Current GAF: 25 Treatment Team - Responsibilities of members of the treatment team include: - Medication Management- MD or RESIDENTIAL TREATMENT COUNSELOR - Medication Administration and Monitoring- Nurse - Group Therapy- Occupational Therapist - 1:1 Therapy,Disch Planning,family involvement-Mortgage Branch Manager
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
--- NOTE | 2017-03-10 21:27 | NUR ---
PT IS CALM, COOPERATIVE WITH STAFF AND PEERS, AND COMPLIANT WITH UNIT RULES. PT IS OFTEN IN MILIE[place], INTERACTING WELL WITH OTHERS. MOOD IS STABLE, AFFECT IS EUTHYMIC TO FULL RANGE, COMMUNICATION IS ORGANZIED AND APPEARS NORMAL IN ALL RESPECTS, AND APPETITE IS NORMAL. PT DENIES SI AT THIS TIME.
[2017-03-11] VITALS (8 sets, daily range): BP systolic 142–150; BP diastolic 90–101
--- NOTE | 2017-03-11 03:00 | NUR ---
Slept well, no complaints offered.
--- NOTE | 2017-03-11 11:17 | NUR ---
PT IS COMPLIANT AND COOPERATIVE WITH UNIT RULES. PT IS OUT IN COMMUNITY INTERACTING WELL WITH STAFF AND PEERS. PT IS ACTIVE IN GROUPS. PT MOOD IS STABLE WITH A FULL RANGE AFFECT. PT DENIES SI THOUGHTS. PT IS NOT SCORING ON HIS CIWA ASSESSMENT.
--- NOTE | 2017-03-11 11:49 | SOCIAL WORKER PROG NOTE PSYCH ---
Social Work Progress Note Progress Note Laurent shared that his day didn't start out great, but he is working to turn it around. He got upset by the news from his sister that his girlfriend called his Mom and was talking to her about what is going on with him. He was bothered by the fact that he didn't feel it was probably presented well by his girlfriend and he is concerned about his Mom's health. He shared that she has heart problems and doesn't want to see her upset. Marivel (girlfriend) visited last night. He said the visit went well, but that they didn't get to spend time alone really talking about them. He isn't sure where things stand between them. I asked again about the possibility of her coming in for a meeting and he refused still. He said that he just wants to focus on him. I told him that the meeting wouldn't be couple's therapy, but to talk about him and what he needs to work on his recovery. He still wasn't ok with her coming in at this point. Talked about possible discharge for Thursday and setting up an intake appt. at [facility] for Thursday. Despite the phone call this morning that was discouraging, he went to group and is working on getting things out and talking to people. I praised him for making a good choice and not isolating. He seemed appreciative of the validation. He did mention that some of the other symptoms he experiences are racing thoughts at night and that he often goes over and over things in his head. Talked about how medication can help, but to also get things out during the day so he is not perseverating on things. He asked for a journal, which was provided to him. Despite his reports of feelings of depression, his affect is bright and he smiled and laughed as we talked. He especially likes to talk about his daughter.
--- NOTE | 2017-03-11 18:58 | CP SOUTH PROGRESS NOTE PSYCH ---
Psych (Inpt) Progress Note Progress Note Include the following elements, when applicable: Involvement in the active treatment of the patient with behavioral observations of the patient and the patient's response to the treatment. Review of the ongoing treatment process in the context of the treatment plan. Indication of how multi-disciplinary staff members are carrying out the treatment plan. Plans for future interventions and recommendations for revision of the treatment plan. Liaison with other physicians/providers. Progress Note: PSYCHIATRIST NOTE, 03/11/2017: At length, patient and I decided he would start low dose Lexapro rather than Zoloft; patient took Lexapro, 5mg, this morning. I discussed this patient' s initial progress, current mental status, treatment and discharge planning with staff team today in the daily morning ITTM and met with him again myself in individual session. Earlier today, patient was apparently visited by his girlfriend Marivel and latter's mother and told that he was not welcome to return to [facility]'s place and that "they" were "going to court" to try to have patient's parental rights terminated; though initially tearful with me, patient soon began to reveal that conflicts, at time major, between him and girlfriend go back all the way to shortly after they were introduced by a mutual friend and have flaired up several times "but not 'this' seriously." In telling his story of girlfriend's rigid and "unempathetic" approach to him and the problems he has had (with back injury, alcohol abuse, etc.), patient's tears soon resolved and he spoke at length with euthymia and a degree of what I would have to describe as "enthusiasm;" his depressive affect/mood melted away and did not return during the course of our meeting today. Patient denied any side effects after initial low dose Lexapro (5mg) this morning; after further discussion of R/B/SE patient agreed to doubling dose tomorrow, 03/12/2017, to 10mg daily in AM.
--- NOTE | 2017-03-11 21:21 | NUR ---
PT IS VISIBLE ON UNIT, SOCIALIZING WITH PEERS AND WATCHING TV IN [place]OUN[place]. COOPERATIVE AND COMPLIANT WITH STAFF. PT HAD A VISIT WITH GIRLFRIEND THAT HE REPORTS DID NOT GO WELL. AFTER THE VISIT, PT WAS MAKING MULTIPLE PHONE CALLS AND REPORTED BEING VERY ANXIOUS. SUPPORT PROVIDED AND PT COPING WELL WITH ANXIETY. NO SI REPORTED. ATTENDED WRAP UP MEETING. PT HAS A STABLE MOOD AND ANXIOUS/LABILE AFFECT.
[2017-03-12] VITALS (8 sets, daily range): BP systolic 139–143; BP diastolic 82–88
--- NOTE | 2017-03-12 07:17 | NUR ---
PATIENT SLEPT ALL NIGHT.
--- NOTE | 2017-03-12 11:20 | SOCIAL WORKER PROG NOTE PSYCH ---
Social Work Progress Note Progress Note Laurent left a note on my desk this morning stating his meeting with Marivel went badly last night and he would like to get her in for a meeting today. Discussed issue in team meeting and decided that it was not a good idea to get inbetween what is currently happening in their relationship. Spoke with Laurent and explained that really this is between him and her and having her in for a meeting doesn't sound productive at this point. He said he would be speaking with her again today. I asked if he could not return to live with her, where would he go? He said possibly his ex-'s house (they are friendly) or get a ticket to [place] and stay with his parents temporarily. He will be following up with Marivel. He is feeling a little overwhelmed by the situation. His ex- lives in [place]. Laurent shared that he spoke with Marivel and he is feeling more confused as she asked if he wanted her to come visit with the baby anson and then told him at the end of the conversation that she loved him. He feels he needs further clarification as to what is going on and if he can return home or not. I encouraged him to make a plan B in case she is still not looking for him to return home and that he needs to be direct about asking her. He stated he has a hard time being direct and it is something he has to work on. I told him I was going to cancel his 9:30a appt. at [facility], because at this point it seemed like too much was unknown and there wasn't a plan. He is talking to peers and going to groups discussing his problems.
--- NOTE | 2017-03-12 13:18 | NUR ---
PT IS COMPLIANT AND COOPERATIVE WITH UNIT RULES. PT IS OUT IN COMMUNITY ITNERACTING WELL WITH OTHERS. PT IS ACTIVE IN GROUPS. PT MOOD IS STABLE WITH A FULL RANGE AFFECT. PT IS TEARFUL AT TIMES. PT CAME UP TO NURSES DESK ASKING TO TALK WITH SOMEONE SINCE "IT WAS ALL TOO MUCH." PT RECIEVED MEDICATION AND RETURNED TO BED. PT DENIES SI THOUGHTS.
--- NOTE | 2017-03-12 15:46 | NUR ---
PT BP ELEVATIONS REPORTED TO DR CAMPBELL. NO NEW MEDICATION OR TREATMENT ORDERS AT THIS TIME.
--- NOTE | 2017-03-12 21:51 | CP SOUTH PROGRESS NOTE PSYCH ---
Psych (Inpt) Progress Note Progress Note Include the following elements, when applicable: Involvement in the active treatment of the patient with behavioral observations of the patient and the patient's response to the treatment. Review of the ongoing treatment process in the context of the treatment plan. Indication of how multi-disciplinary staff members are carrying out the treatment plan. Plans for future interventions and recommendations for revision of the treatment plan. Liaison with other physicians/providers. Progress Note: PSYCHIATRIST NOTE, 03/12/2017: I discussed this patient's slow progress to date, current mental status, treatment and discharge planning with staff team today in the daily morning ITTM and also met with him again myself in individual session. Patient has begun to work on relationship with his girlfriend who seems to be more willing to consider him going back to stay with her and their child upon discharge but not comfortable to have him back home immediately. Patient and I discussed other alternative short-term living arrangements but none seem to be viable at this time. Patient was again tearful but expressing his sincere hope that he and girlfriend can start making improvements in their relationship while he attends the [employer]; he is much more willing to consider his (considerable) role in the couple's difficulties and the burden it places on girlfriend to go to work, still have to provide childcare despite patient "being at home all day" and of supporting their little family on her own; Patient expressed his desire to find some work to help out and to be of more help around the home. He received last tapering dose of Ativan earlier today and dose of Lexapro was increased this morning from 5mg to 10mg/day without noted side effects thus far. Patient is more hopeful, less despondent with the thought that he may not be from his 2.5-year-old daughter.
[2017-03-13] VITALS (8 sets, daily range): BP systolic 146–173; BP diastolic 89–99
--- NOTE | 2017-03-13 10:49 | CP SOUTH PROGRESS NOTE PSYCH ---
Psych (Inpt) Progress Note Progress Note Include the following elements, when applicable: Involvement in the active treatment of the patient with behavioral observations of the patient and the patient's response to the treatment. Review of the ongoing treatment process in the context of the treatment plan. Indication of how multi-disciplinary staff members are carrying out the treatment plan. Plans for future interventions and recommendations for revision of the treatment plan. Liaison with other physicians/providers. Progress Note: PSYCHIATRIST NOTE, 03/13/2017: I discussed this patient's progress to date, current mental status, treatment and discharge planning with staff team today in the daily morning ALFIE and Margarette Gooden LCSW, and I met with him in individual session. Patient and his girlfriend have been engaging in possibly constructive discussions over the telephone and in-person during visiting hours; it now looks that he will be able to return to her place upon discharge so long as there is a firm overcare/ therapy plan in place to which he pledges to adhere; we will meet with the couple prior to discharge early next week. Patient has become more hopeful, less overtly anxious, depressed and tearful. He is tolerating titration of Lexapro and Abilify well to date, still having some difficulty settling down to sleep but I think the low dose Abilify at is helping. Patient will be spending some of the weekend writing down in his journal the ways in which he can change to make his life and that of he and girlfriend better, be more helpful, less "needy" and looking for support and more giving of it. Patient is positive with regard to f/u in the [facility]; we will try to set up intake so that it will take place on the day of discharge early next week.
--- NOTE | 2017-03-13 10:50 | SOCIAL WORKER PROG NOTE PSYCH ---
See Addendum Social Work Progress Note Progress Note Laurent shared with me this morning that he had a good meeting with Marivel last night and she will allow him to return home early next week. She would like to see him spend a little more time here. Dr. Granados and I met with Laurent together. Laurent said he talked to Marivel and it was positive and that she is willing to come in for a supportive meeting whenever we would like. Dr. Granados stated we will plan for a Thursday morning meeting and then set up intake at [facility] for 12:45 if possible and he should plan to go that day. Laurent agreed. Talked about how his thoughts are positive today and how he got really scared about losing his daughter and he couldn't bare the thought of that. He sounds motivated towards really wanting to work on things right now. Talked about how not to let Marivel's behavior influence his momentum. Brought up AA and attending post discharge. He said he was going to try to return, although found AA "too denominational" in the past. Encouraged to try different meetings and to get a sponsor. Encouraged him to set up an 11am meeting Thursday with Marivel. He signed a release for her. I called [facility] and was able to schedule a 12:45 intake.
--- NOTE | 2017-03-13 14:22 | NUR ---
PT VISIBLE IN THE [place] TODAY. HIS GOAL WAS TO LEARN NEW COPING SKILLS. PT HAS BEEN IN MOST GROUPS TODAY, AND HAS BEEN INTERACTING WITH HIS PEERS. IN THE [place] PT HAS BEEN COOPERATIVE, AND PLEASANT. HE DENIES THOUGHTS OF HURTING HIMSELF WHEN ASKED.
--- NOTE | 2017-03-13 22:14 | NUR ---
PT GIVES FEEDBACK TO PEERS AND HELPS TO MAKE OTHERS COMFORTABLE AND ADJUST. FRIENDLY AND COOPERATIVE. WATCHES TV IN [employer] AND TALKS TO STAFF. PT DENIES ANY THOUGHTS OF SI AT THIS TIME.
[2017-03-14] VITALS (8 sets, daily range): BP systolic 142–150; BP diastolic 90–96
--- NOTE | 2017-03-14 10:42 | CP SOUTH PROGRESS NOTE PSYCH ---
Psych (Inpt) Progress Note Progress Note Include the following elements, when applicable: Involvement in the active treatment of the patient with behavioral observations of the patient and the patient's response to the treatment. Review of the ongoing treatment process in the context of the treatment plan. Indication of how multi-disciplinary staff members are carrying out the treatment plan. Plans for future interventions and recommendations for revision of the treatment plan. Liaison with other physicians/providers. Progress Note: Stated that he has is doing well ; that he has learned to open his mouth and speak from the groups; is happy to be leaving this week. Stated that his depression is a 4/10, that when he came in it was a 9/10. Stated that his anxiety level is a 3/10 that he feels pretty well under control. No acute issues. MSE: young aged man, fair hygiene and grooming. Overweight. Appropriate eye contact. No tremor or movement d/o, no psychomotor changes. Affect is full and mood is good, reactive. Speech is wnl. Thought process is linear. Thought content negative for depressed mood, no thoughts to harm himself/others. Denied hallucinations. Good insight and judgment. A: 37 y.o man w/ hx anxiety and depressive sx, stabilizing clinically. P: Target risk factors/active sx (residual depressive sx) w/education, ongoing family involement; Medication, engage in groups, milieu therapy. No medication changes, future oriented to d/c and seeing his family next week.
--- NOTE | 2017-03-14 21:23 | NUR ---
PT IS CALM, COOPERATIVE WITH STAFF AND PEERS, AND COMPLIANT WITH UNIT RULES. PT IS OFTEN IN [place], INTERACTING WELL WITH OTHERS. MOOD ID STBALE, AFFECT IS EUTHYMIC TO FULL RANGE, COMMUNICATION IS ORGANZIED AND APPEARS NORMAL IN ALL RESPECTS, AND APPETITE IS NORMAL. PT DENIES SI AT THIS TIME.
[2017-03-15] VITALS (8 sets, daily range): BP systolic 142–149; BP diastolic 83–96
--- NOTE | 2017-03-15 05:34 | NUR ---
PT LESS ANXIOUS, LESS DEPRESSED. PT SOCIAL ON UNIT. PT APPEARED TO SLEEP.
--- NOTE | 2017-03-15 12:09 | NUR ---
Laurent appeared to have a good shift. Social and friendly with peers and staff. Verbalized support and encouragement to a peer when they became upset. Attended group. Denies SH/HI/SI. Bright affect thoughout the shift.
--- NOTE | 2017-03-15 14:14 | CP SOUTH PROGRESS NOTE PSYCH ---
Psych (Inpt) Progress Note Progress Note Include the following elements, when applicable: Involvement in the active treatment of the patient with behavioral observations of the patient and the patient's response to the treatment. Review of the ongoing treatment process in the context of the treatment plan. Indication of how multi-disciplinary staff members are carrying out the treatment plan. Plans for future interventions and recommendations for revision of the treatment plan. Liaison with other physicians/providers. Progress Note: Stated that he normally has trouble faling asleep, racing thoughts, and poor sleep last night. Depression remains improved, anxiety improved. Somewhat more hyperverbal today; but otherwise clinically similar and stabilizing. MSE: young aged man, well groomed, fair hygiene. Overweight. Good eye contact, pleasant and well related. No movement d/o. Affect is reactive, full. Mood is good. Speech is wnl. Thought process is linear. Thought content negative for depressed mood, no thoughts to harm himself/others. Denied hallucinations. Good insight and judgment. A: 37 y.o man w/ hx anxiety and depressive sx, stabilizing clinically. P: Target risk factors/active sx (residual depressive sx) w/education, ongoing family involement; Medication, engage in groups, milieu therapy. No medication changes, future oriented to d/c and seeing his family next week. Consider changing abilify dosing if no improvement in anxiety and restlessness at night time after a few more days.
--- NOTE | 2017-03-16 07:10 | NUR ---
PT APPEARED TO SLEEP WELL. PT READY TO DC.
[2017-03-16 07:44] VITALS: BP 135/85
--- NOTE | 2017-03-16 08:08 | NUR ---
PT IS SCHEDULED FOR D/C TODAY TO [facility]. HE REPORTS AND DEMONSTRATES IMPROVEMENT IN HIS MOOD AND ABILITY TO FUNCTION. HE EXHIBITS FULL RANGE OF AFFECT. WHEN ASKED HE DNIES ANY THOUGHTSOF SUICIDE OR SELF HARM. HE VERBALIZES A DESIRE TO BE CLEAN AND SOBER. HE IS LOOKING FORWARD TO GOING HOME. PT VERBALIZES A GOOD UNDERSTNADING OF HIS MED REGIME AND TREATMENT PLAN. PT AGREES TO FOLLOW UP WITH [facility] AND HAS HIS INTAKE TODAY. PT IS GIVEN EDUCATION ON MANAGING HIS MOOD D/O AND ON PREVENTING SUICIDE
[2017-03-16 08:15] VITALS: BP 135/85
[2017-03-16 08:49] VITALS: BP 135/85
--- NOTE | 2017-03-16 09:58 | CP SOUTH PROGRESS NOTE PSYCH ---
Psych (Inpt) Progress Note Progress Note Include the following elements, when applicable: Involvement in the active treatment of the patient with behavioral observations of the patient and the patient's response to the treatment. Review of the ongoing treatment process in the context of the treatment plan. Indication of how multi-disciplinary staff members are carrying out the treatment plan. Plans for future interventions and recommendations for revision of the treatment plan. Liaison with other physicians/providers. Progress Note: I discussed this patient's progress to date, current mental status, treatment process in the context of the treatment plan, and discharge planning with staff/ team in the daily morning inpatient team meeting. I also met with the patient myself in individual session. S: "I feel positive, looking forward to going home." O: Current Medications Sig/Endy Start time Last Medication Dose Route Stop Time Status Admin Acetaminophen 1,000 MG Q4H PRN 03/10 1045 AC 03/15 PO 1717 Amlodipine Besylate 10 MG DAILY 03/10 1000 AC 03/16 PO 0849 Aripiprazole 5 MG 03/12 224 AC 03/15 PO 2207 Aripiprazole 2 MG Q4P PRN 03/12 224 AC PO Calcium Carbonate 1,000 MG Q8H PRN 03/10 2130 AC 03/14 PO 2356 Escitalopram Oxalate 10 MG 1000 03/12 1000 AC 03/16 PO 0849 Folic Acid 1 MG 03/10 1245 AC 03/16 PO 0849 Gabapentin 300 MG Q4H PRN 03/10 1245 AC 03/11 PO 1304 Ibuprofen 800 MG .STK-MED ONE 03/15 2202 DC PO 03/15 2203 Ibuprofen 800 MG .STK-MED ONE 03/15 1002 DC PO 03/15 1003 Ibuprofen 800 MG Q4H PRN 03/10 2115 AC 03/16 PO 0850 Lorazepam 1 MG Q2P PRN 03/10 1245 AC PO Lorazepam 1.5 MG Q2P PRN 03/10 1245 AC PO Losartan Potassium 50 MG DAILY 03/10 1000 AC 03/16 PO 0849 Melatonin 3 MG AT BEDTIME NEED.. 03/12 2315 AC 03/15 PO 2256 Melatonin 5 MG AT BEDTIME NEED.. 03/12 2245 AC 03/15 PO 2256 Multivitamins 1 TAB 0803/10 1245 AC 03/16 PO 0849 Nicotine 21 MG DAILY 03/09 1000 AC 03/16 TOP 0849 Thiamine HCl 100 MG 0800 03/10 1245 AC 03/16 PO 0849 Trazodone HCl 50 MG AT BEDTIME NEED.. 03/12 2245 03/15 PO 2257 Vital Signs Date Time Temp Pulse Resp B/P B/P Pulse O2 O2 Flow FiO2 Mean Ox Delivery Rate 03/16 0849 82 135/85 03/16 0849 82 135/85 03/16 0815 96.6 82 135/85 03/16 0744 96.6 82 135/85 03/15 2004 98.1 77 146/83 03/15 2002 98.1 77 146/83 03/15 1620 87 146/96 03/15 1616 87 146/96 03/15 1209 85 149/95 03/15 1203 85 149/95 A: Chart, progress notes, labs, VS and medication list were reviewed. No major events from over the weekend. Vital signs within normal limits. No new lab results today. Met with the patient today at 10AM for the first time on [facility] (covering for Dr. Granados) on the date of discharge. He presented alert and oriented to person, place, time and situation. Speech was normal in rate, tone and volume. Affect was full-range, non-labile. Mood was euthymic. He reported feeling "positive." There was no evidence of hypomania/manic symptoms. He had no complaints. He reported his sleep was improved, since initial admission. He also reported an improvement in racing thoughts on Abilify since admission, however reported they were not fully resolved. He denied acute symptoms of anxiety and depression. He denied passive and active suicidal ideation, plans and intent. He denied homicidal ideation, auditory and visual hallucinations, paranoia. There was no evidence of delusions. Thought process was linear and goal-directed. Insight and judgment improved. He stated and also believed he will not harm himself or others. He identified protective factors if his girlfriend, daughter, and mother. He shared that hospitalization benefited him by helping him to learn coping skills (verbally expressing his feelings, attending group therapy, journaling). He expressed motivation to abstain from all substances. He expressed prior poor experiences with AA. He was educated on the alternative of NA meetings, and was encouraged to trial meetings for support in sobriety. He denied urges/cravings to use alcohol, and appeared very motivated to attend [facility] for continued management of dual psychiatric symptoms. He reported tolerating medications well and denied untoward effects. He reported feeling safe and ready for discharge. P: 1. Discharge today into the care of his girlfriend and home. 2. F/u at [facility] at 12:45PM for intake. 3. All discharge medications were e-prescribed to [facility] in [place], [place]. Patient was advised to purchase Melatonin OTC, and was educated on administration instructions. 4. Abstain from all substances. Patient was encouraged to attend AA/NA meetings for support in sobriety. 5. In the event of an emergency, call 911/go to nearest emergency department. Patient verbalized understanding of instruction.
[2017-03-16] MEDS ORDERED: LEXAPRO10 M1 PO (10:25)
[2017-03-16] MEDS ORDERED: TRAZODONE HCL50 M1 PO (10:27)
[2017-03-16] MEDS ORDERED: ABILIFY5 M1 PO (10:28)
[2017-03-16] MEDS ORDERED: NICOTINE PATCH1 EAC3 TOP (10:31)
--- NOTE | 2017-03-16 10:52 | DISCHARGE SUMMARY REPORT-PSYCH ---
Visit Information Visit Dates/Diagnosis' Admission Date: 03/09/17 Discharge Date: 03/16/17 Reason for Admission: Alcohol intoxication and detox; Suicidal ideation. Psy Discharge Primary Diag: Unspecified depression with suicidal ideation. Psy Discharge Secondary Diag: R/O Major depressive disorder/episode; R/O Depressive episode of bipolar disorder; Alcohol use disorder; Alcohol intoxication (in ED [facility] [employer] [facility]); HTN. Hospital Course Significant Lab Findings: Lab Total Protein 6.2 g/dL L 03/09/17 0021 Hct 39.9 % L 03/09/17 0021 Hgb 13.4 G/DL L 03/09/17 0021 MCH 34.4 PG H 03/09/17 0021 MCV 102.6 FL H 03/09/17 0021 RBC 3.89 /CUMM L 03/09/17 0021 Serum Alcohol 121.0 MG/DL 03/09/17 0021 U Benzodiazepines Scrn > 800 NG/ML H 03/09/17 0734 Urine Cannabis Screen 67.00 NG/ML H 03/09/17 0734 Course Complications: None. Consultations: The patient was seen for admission history and physical by mechanical design drafter Dr. Nellie Connell. Please see her note for additional information. Per Dr. Connell's recommendation, patient was advised to follow-up with his primary care provider for weight management and management of chronic medical issues. Allergies: Coded Allergies: No Known Allergies (12/03/16) Hospital Course/TX Response: The patient was monitored on the unit for safety, suicidal ideation, mood and alcohol withdrawal. He was monitored on CIWA protocol and successfully completed an Ativan taper for alcohol withdrawal without complications. He participated in multimodal treatments on the unit. He was started on Lexapro 5mg daily which was increased to 10mg daily for depression. Abilify 5mg nightly was additionally started for mood stabilization/racing thoughts. Trazodone 50mg prn was started nightly for difficulty falling alseep/insomnia, in addition to prn Melatonin (up to 8mg nightly). Patient was agreeable to increasing Melatonin on discharge to 10mg nightly for difficulty falling asleep/insomnia. The patient reported tolerating all medications well and denied untoward medication effects. During the hospital course, the patient's mood and affect improved. Suicidal ideation remitted. His insight and judgement improved surrounding the impact of his drinking on his mental and physical health, as well as on his relationships with his daughter and girlfriend. A family meeting was held on the date of discharge with the patient, his girlfriend Marivel, Margarette Gooden LCSW, and this policy writer typist. The patient's treatment progress, medication regimen, level of safety, and discharge plan was reviewed and discussed. Marivel had expressed that her trust in Laurent presently is nil and that he will need to prove himself by attending IOP, remaining sober, and allowing her to be involved in his IOP treatment. Laurent expressed that he would allow Marivel to support him and be involved in his IOP treatment. Marivel did not express any safety concerns regarding the patient. The patient and Marivel were in favor of discharge plan, and Marivel expressed that she would allow Laurent to return to her home. On the date of discharge, 03/16/17, this was the first time I met with the patient on [facility] (covering for Dr. Granados). He presented alert and oriented to person, place, time and situation. Speech was normal in rate, tone and volume. Affect was full-range, non-labile. Mood was euthymic. He reported feeling "positive." There was no evidence of hypomania/manic symptoms. He had no complaints. He reported his sleep was somewhat improved since initial admission. He also reported an improvement in racing thoughts on Abilify since admission, however reported they were not fully resolved. He denied acute symptoms of anxiety and depression. He denied passive and active suicidal ideation, plans and intent. He stated and also believed he will not harm himself or others. He identified protective factors of his girlfriend, daughter, and mother. He denied homicidal ideation, auditory and visual hallucinations, paranoia ideation. There was no evidence of delusions. Thought process was linear and goal-directed. Insight and judgment appeared improved. He shared that hospitalization was of benefit to him by helping him learn coping skills (verbally expressing his feelings, attending group therapy, journaling). He expressed motivation to abstain from all substances. He expressed prior poor experiences with AA. He was educated on the alternative of NA meetings, and was encouraged to trial meetings for support in sobriety, in addition to trialing different AA meetings. He denied urges/cravings to use alcohol, and appeared very motivated to attend [facility] for continued management of dual psychiatric symptoms. He reported tolerating all medications well and denied untoward effects. He reported feeling safe and ready for discharge. Discharge HBIPS - Tobacco Use Treatment Offered Post DC Medications Offered: Script Given-See Med List Post DC Tobacco Treatment Plan: [facility] Tobacco Tx Pgm - EtOH/Drug Use D/O Treatment Offered Post DC Medications Offered: Ref Med EtOH/Drug Use D/O Post DC EtOH/SubAbuse TX Plan: [facility] SubAbuse/Dual IOP Program Appt Date: 03/16/17 Program Appt Time: 1245 Metabolic Screening - Screen if on a Neuroleptic Medication - Metabolic screening should include: - Blood Pressure, BMI, Glucose or Hgb A1c, & a - Lipid profile from within the past 365 days. Metabolic Screening () Not Applicable, patient not on a neuroleptic. OR ([X]) Patient on a neuroleptic(s) . Enter below results for Glucose or Hemoglobin A1C, and lipid panel if obtained during the last 365 days. BMI: Blood Pressure: 135/85 Laboratory Results (If applicable): Lab Glucose 97 mg/dL 03/09/17 0021 The patient declined lipid panel draw on the date of discharge. Discharge Instructions General Discharge Information Discharge Medications: Discharge Medications- (Dose, route, freq, indication): HOME MEDICATION LIST START taking these NEW Home Medications: Nicotine (Nicotine Dose: On the skin, DAILY for Qty: 14 Transmit to Patch) 21 MG/24 HOUR 21 Milligram tobacco cessation Refills: 0 Pharm 1 PATCH.TD24 Apply 1 patch topically QAM and remove before bedtime. Escitalopram Oxalate Dose: ORAL, 1000 for Qty: 14 Transmit to (Lexapro) 10 MG 10 Milligram depression/anxiety Refills: 0 Pharm 1 TABLET Take 1 tablet by mouth every morning. Trazodone HCl Dose: ORAL, AT BEDTIME as Qty: 14 Transmit to (Trazodone HCl) 50 50 Milligram needed for DFA/insomnia Refills: 0 Pharm 1 MG TABLET Take 1 tablet by mouth at bedtime as needed for insomnia. Aripiprazole Dose: ORAL, 2200 for mood Qty: 14 Transmit to (Abilify) 5 MG 5 Milligram stability/racing thoughts Refills: 0 Pharm 1 TABLET Take 1 tablet by mouth at bedtime. CONTINUE taking these Home Medications: Amlodipine Besylate Dose: ORAL, DAILY for BP (Amlodipine Besylate) 10 10 Milligram MG TABLET Losartan Potassium Dose: ORAL, DAILY for HEART (Losartan Potassium) 50 1 Tablet MG TABLET Folic Acid (Folic Acid) Dose: ORAL, DAILY for 1 MG TABLET 1 Tablet SUPPLEMENT Thiamine HCl (B-1) 100 Dose: ORAL, DAILY for MG TABLET 1 Tablet SUPPLEMENT Multivitamin (Multi-Day Dose: ORAL, DAILY for Vitamins) 1 EACH TABLET 1 Tablet SUPPLEMENT Melatonin 5mg tablets, take 2 tablets (10mg) po at bedtime prn for insomnia/ sleep induction. Purchase OTC. Patient verbalized understanding of administration instructions. 1: [email or web address] [address] [place] [address] [phone] Your Preferred Pharmacy [facility] [place] [address] [phone] Multiple Neuroleptics: ([X]) Not Applicable OR Document below three failed attempts at monotherapy, or a plan to taper to monotherapy, or augmentation of Clozapine. () Patient's Diet: Regular. Patient's Activity: No restrictions. DC Disposition: To return to home and girlfriend. Recommendations: The patient was advised to please take his medications as prescribed. He was advised to abstain from all substances, and to trial different AA/NA meetings for support in sobriety. He was advised to attend scheduled outpatient appointments (see in referral section below). He was advised that in the event of an emergency to call 911/go to nearest emergency department. The patient verbalized understanding of all instructions. Referred To: Post Discharge Referrals Intensive Outpt Psychiatry Service Date: 03/16/17 [address] [place] [address] Notes: [facility] intake 03/16/17 12:45pm [address] [place], [place] [phone] Provider Referral Service Date: 03/18/17 Referred To: [facility] Notes: JULIAN Gray (primary care) appt. 03/18/17 10:30am [address] [place] [address], [place] [phone] OUTPATIENT PSYCHIATRY Service Date: 03/25/17 248/250 [address] [id number] Notes: Smoking Cessation Group 03/25/17 4pm [address] [id number] Copies To: Dr. Jhaveri; IOP; Smoking Cessation
--- NOTE | 2017-03-16 11:45 | SOCIAL WORKER PROG NOTE PSYCH ---
Social Work Progress Note Progress Note Laurent's significant other Marivel came in for a family meeting at 11am this morning. Ai Clemente APRN was also part of this meeting. Asked Laurent how his weekend and Birthday was on Thursday? When said he never likes to make a big deal out of his birthday, because he feels that it has something to do with his self-worth. He started thinking differently over the weekend and was happy to celebrate with peers. Talked about Marivel bringing in cupcakes and staff presenting a cake that he was happy to receive. Marivel is hesitant to take him back home, but willing to give it a try. She stated that her trust in him is nil at this point and that he will need to show his behaviors are changing. Laurent described feeling alot of pressure under the current circumstances in their relationship and feels she will be watching his every move. He told her that he needs her support. Encouraged him to let IOP staff keep Marivel involved in the process of his treatment while he is with them. He was ok with it, but hesitant, asking if it can change if their relationship changes? He was assured that he can revoke a release at any time. Laurent is very anxious about leaving the hospital and returning to the community. Talked about the importance of structure and utilizing various coping skills. He said that he would like to get back to doing some of the things he was doing in his life. He mentioned drawing, journaling, excercise. He would also like to set aside time each night for the two of them to communicate with eachother. Discussed AA attendance. Laurent is hoping to find a meeting or other support that is not "religiously based". IOP intake is scheduled for 12:45 today.
== END 2017-03-16 11:24 | DRG 754 ==
LOC: ENRESERVTM → ENRESERVDT → ERH 22:06 → CP SOUTH 03-09 19:01 → ERHI 03-09 19:01 → CP SOUTH 03-09 21:34 → ENPENDDIS 03-16 13:00
PROVIDERS: Pediatrics; ADMIT Psychiatry & Neurology Addiction Medicine
DX: F32.9 Major depressive disorder, single episode, unspecified (principal); R45.851 Suicidal ideations; F10.929 Alcohol use, unspecified with intoxication, unspecified
CPT/HCPCS: 80307; 90834; G0480; J3490

== ENCOUNTER → 2017-12-11 | Day surgery (SDC) | payer OTHER ==
[~2017-12-11] VITALS: Ht 182.9 cm; Wt 176.9 kg
[~2017-12-11] MED LIST changes: +ABILIFY10 M1 PO; +ABILIFY5 M1 PO; +B-1100 MG PO; +COZAAR100 M1 PO; +FOLIC ACID1 M1 PO; +IBUPROFEN200 M3 PO; +LEXAPRO10 M1 PO; +LEXAPRO20 M1 PO; +LOSARTAN POTASS50 M1 PO; +MULTI-VITAMIN1 EAC1 PO; +NICOTINE PATCH1 EAC3 TOP; +TRAZODONE HCL50 M1 PO; +WELLBUTRIN XL300 M2 PO
--- NOTE | 2017-12-11 13:33 | Operative Report ---
Operative/Inv Procedure Report Surgery Date: 12/11/17 Name of Procedure: Open mesh repair of incarcerated umbilical hernia, 4.3 cm ventralex Pre-Operative Diagnosis: Incarcerated umbilical hernia Post-Operative Diagnosis: Same Estimated Blood Loss: scant Surgeon/Pharmacy Care Coordinator: Mary Ellen CLEMONS,Yvan ENGLISH Anesthesia: general endotracheal tube Operative/Procedure Note Note: Patient was placed on the OR table in the supine position. After successful induction of general anesthesia, another timeout was done, antibiotics given, the abdomen was clipped prepped and draped in the usual sterile fashion. An incision was planned overlying the hernia, this spot was infiltrated with local anesthetic and then made with a 15 blade, 3.5 cm long. This was deepened with cautery and the incarcerated herniated fat and overlying sac were dissected circumferentially off the fascia, defining the true edges of the defect. Because of his girth this took some more time we had to use Deavers. It was oriented horizontally, we then inserted the Ventralex coated 4.3 centimeter mesh underneath the defect using the tails to center it and then closed the defect with interrupted 2-0 proline and Maxon sutures in this case 3, incorporating the mesh with each bite. The subcutaneous layer and Roe's fascia were reapproximated to cover. The incision was irrigated and then the skin was reapproximated with a running subcuticular 4-0 Biosyn, followed by Mastisol, Steri-Strips Telfa Tegaderm. EBL minimal lap and sponge counts correct wound expectancy clean IV fluids crystalloid complications none patient tolerated the procedure well was awakened extubated returned to the recovery room in satisfactory condition.
== END ==
LOC: STS 01:58
DX: K42.0 Umbilical hernia with obstruction, without gangrene (principal); I10 Essential (primary) hypertension; E66.9 Obesity, unspecified; Z68.43 Body mass index [BMI] 50.0-59.9, adult; F17.210 Nicotine dependence, cigarettes, uncomplicated
CPT/HCPCS: C1781; C9399; J0131; J0690; J2250